=== PATIENT | female | born 1945 | race Caucasian/White ===

== ENCOUNTER 2020-01-04 23:49 | Emergency (ER) | payer MEDICARE, OTHER ==
[~2020-01-04] VITALS: Ht 165.1 cm; Wt 51.7 kg
--- NOTE | 2020-01-04 23:56 | NUR ---
PT IS A/OX4, BIB [facility] FROM [facility], C/O HEADACHE X "COUPLE OF HOURS". PER MANAGER SALT'S REPORT, PT'S BP WAS 200/100 IN THE FIELD. BP 155/82 IN TRIAGE. PT C/O HEADACHE 05/05, NON-PROVOKED, ACHING IN QUALITY, DOES NOT RADIATE, HAS "IMPROVED". PT DENIES C/P, SOB, N/V/D, DIZZINESS.
--- NOTE | 2020-01-05 00:05 | NUR ---
PEREZ KIM AT BEDSIDE FOR MSE.
[2020-01-05] MEDS ORDERED: METOCLOPRAMIDE HCL 10 MG/2 ML VIAL ONE (00:24)
[2020-01-05] MEDS ORDERED: METOCLOPRAMIDE HCL 10 MG/2 ML VIAL IM ONE (00:30)
[2020-01-05 00:42] LABS: CREATININE 0.7 mg/dL (0.6-1.3); POTASSIUM 4.2 mmol/L (3.5-5.1)
[2020-01-05 00:43] LABS: BASOPHILS % (AUTO) 0.8 % (0.0-2.0); EOSINOPHILS # (AUTO) 0.1 K/uL (0.0-0.7); HEMATOCRIT 35.2 % (31.2-41.9); HEMOGLOBIN 11.5 g/dL (10.9-14.3); LYMPHOCYTES # (AUTO) 1.7 K/uL (20.0-40.0); LYMPHOCYTES % (AUTO) 34.1 % (20.5-51.5); MEAN CORPUSCULAR HGB CONC 33 g/dL (32.3-35.6); MEAN CORPUSCULAR VOLUME 85.4 fL (75.5-95.3); MONOCYTES # (AUTO) 0.4 K/uL (2.0-10.0); MONOCYTES % (AUTO) 7.4 % (0.0-11.0); NEUTROPHILS # (AUTO) 2.7 K/uL (1.8-8.9); NEUTROPHILS % (AUTO) 55.7 % (38.5-71.5); PLATELET COUNT (AUTO) 177 K/uL (179-408); RED BLOOD CELL COUNT(AUTO) 4.13 MIL/uL (3.63-4.92); WHITE BLOOD COUNT (AUTO) 4.9 K/uL (3.8-11.8)
--- NOTE | 2020-01-05 01:10 | NUR ---
PT REFUSING HEAD CT. ER NOTIFIED. PT STATES "HEADACHE WAS BECAUSE OF THE HIGH BLOOD PRESSURE. MY BLOOD PRESSURE IS NORMAL NOW".
--- NOTE | 2020-01-05 01:20 | NUR ---
PT TAKEN TO RADIOLOGY FOR CT SCAN.
--- NOTE | 2020-01-05 01:28 | NUR ---
PT BACK IN ER FROM RADIOLOGY.
[2020-01-05] MEDS ORDERED: KETOROLAC TROMETHAMINE 15 MG INJ IM ONE (01:30)
[2020-01-05] MEDS ORDERED: KETOROLAC TROMETHAMINE 15 MG INJ ONE (01:32)
--- NOTE | 2020-01-05 02:41 | NUR ---
CALLED [facility] TO TAKE PT BACK TO [facility]. SPOKE W/ KUMAR. ETA 10-15 MIN.
--- NOTE | 2020-01-05 02:42 | NUR ---
Patient discharged to home in stable conditon. Written and verbal after care instructions given. Patient verbalizes understanding of instructions. ALL BELONGINGS W/ PT. PT SELF-AMBULATED W/O DIFICULTY. PT WILL BE DRIVEN HOME BY [facility].
[2020-01-05 02:44] VITALS: BP 126/88
== END 2020-01-05 02:52 | disposition home or self-care (01) ==
LOC: ER 23:51
DX: G43.909 Migraine, unspecified, not intractable, without status migrainosus (principal); E03.9 Hypothyroidism, unspecified; Z88.0 Allergy status to penicillin; Z79.899 Other long term (current) drug therapy
CPT/HCPCS: 36415; 70450; 80048; 85025; 85651; 85730; 96372 ×2; 99284; J1885; J2765; A4663

== ENCOUNTER 2021-01-23 18:24 | Inpatient (IN) | payer MEDICARE, OTHER ==
[~2021-01-23] VITALS: Ht 160 cm; Wt 57.6 kg
[~2021-01-23 18:24] MED LIST: GABA-532 PO; LEVO50TA PO; LEVO75TA PO
[2021-01-23] MEDS ORDERED: IV NORMAL SALINE 500 ML IV ONE (19:00)
[2021-01-23] MEDS ORDERED: ONDANSETRON 4 MG/2 ML VIAL IV ONE (19:00)
[2021-01-23] MEDS ORDERED: KETOROLAC TROMETHAMINE 15 MG INJ IVP ONE (19:00)
[2021-01-23] MEDS ORDERED: ONDANSETRON 4 MG/2 ML VIAL ONE (19:06)
[2021-01-23] MEDS ORDERED: KETOROLAC TROMETHAMINE 15 MG INJ ONE (19:06)
[2021-01-23 19:29] LABS: *BILIRUBIN,URIN NEGATIVE (NEGATIVE); *BLOOD, URINE NEGATIVE (NEGATIVE); *CLARITY,URINE CLEAR (CLEAR); *COLOR,URINE LIGHT YELLOW (YELLOW); *KETONES,URINE NEGATIVE (NEGATIVE); *UROBILINOGEN,URINE 0.2 E.U./dl (NORMAL); LEUKOCYTE ESTERASE ,URINE NEGATIVE (NEGATIVE); NITRITE, URINE NEGATIVE (NEGATIVE); PH,URINE 8.5 (5.0-8.0); UGLUCOSE NEGATIVE (NEGATIVE)
[2021-01-23 19:34] LABS: BASOPHILS % (AUTO) 0.2 % (0.0-2.0); EOSINOPHILS # (AUTO) 0.1 K/uL (0.0-0.7); EOSINOPHILS % (AUTO) 1.1 % (0.0-7.0); HEMATOCRIT 37.1 % (31.2-41.9); HEMOGLOBIN 11.8 g/dL (10.9-14.3); LYMPHOCYTES % (AUTO) 10.8 % (20.5-51.5); MEAN CORPUSCULAR HEMOGLOBIN 26.9 uug (24.7-32.8); MEAN CORPUSCULAR HGB CONC 32 g/dL (32.3-35.6); MEAN CORPUSCULAR VOLUME 84.3 fL (75.5-95.3); MONOCYTES # (AUTO) 0.4 K/uL (2.0-10.0); MONOCYTES % (AUTO) 4.9 % (0.0-11.0); NEUTROPHILS # (AUTO) 7.5 K/uL (1.8-8.9); PLATELET COUNT (AUTO) 176 K/uL (179-408)
[2021-01-23 19:36] LABS: CREATININE 0.6 mg/dL (0.6-1.3)
[2021-01-23 19:43] LABS: BILIRUBIN,TOTAL 0.8 mg/dL (0.2-1.0)
[2021-01-23 19:53] LABS: MAGNESIUM 1.9 mg/dL (1.8-2.4)
[2021-01-23 20:09] LABS: THYROID STIMULATING HORMONE 0.942 mIU/mL (0.358-3.740)
--- NOTE | 2021-01-23 20:49 | NUR ---
Paged [employer] for panel call. Pending call back from Dr. Chen
--- NOTE | 2021-01-23 20:56 | NUR ---
Pt. admitted to Telemetry, under care of Dr. Chen Diagnossi: Hyponatremia Belongs List completed Addendum: 01/23/21 at 2156 by TPADOLINA Patient admitted to Med/Surg Addendum: 01/23/21 at 2201 by TPADOLINA Patient admitted to Med/Surg for Hyponatremia. Accepting MD is Dr. Chen
[2021-01-23] MEDS ORDERED: Z GUARD REMEDY PASTE 57 GM TUBE TOP PRN (21:45)
[2021-01-23] MEDS ORDERED: MAGNESIUM HYDROXIDE 30 ML LIQUID UDC PO PRN (21:45)
[2021-01-23] MEDS ORDERED: ONDANSETRON 4 MG/2 ML VIAL IV PRN (21:45)
[2021-01-23] MEDS ORDERED: IV NS 1000 ML 1,000 ML IV PRN (21:45)
[2021-01-23] MEDS ORDERED: HYDROCODONE/APAP 5-325MG TABLET PO PRN (21:45)
[2021-01-23] MEDS ORDERED: FAMOTIDINE 20 MG TABLET PO ONE (22:30)
[2021-01-23] MEDS ORDERED: FAMOTIDINE 20 MG TABLET ONE (22:34)
[2021-01-23 23:00] VITALS: BP 138/67
--- NOTE | 2021-01-23 23:00 | NUR ---
ADMITTED THIS 75 Y.O. LADY FROM ER ACCOMPANIED BY ER NURSE VIA CRISTIANE,WITH COMPLAINTS OF HEADACHE AND BODY ACHES, SODIUM LEVEL IS 126,iIV SITE ON LEFT AC PATENT AND INTACT,ADMISSION CARE DONE, PT CONSIDERED PUI, SOME OF HER PRESENTING SYMPTOMS ARE HEADACHE,CRAMPY ABDOMINAL PAIN, BODY ACHES AND CHILLS. VITAL SINS TAKEN AND RECORDED.SHE IS ALLERGIC TO PCN. HISTORY OF OSTEOPOROSIS, HYPOTHYROIDISM.PT ALERT AND ORIENTED,ABLE TO MAKE NEEDS KNOWN, VERY NEEDY .
--- NOTE | 2021-01-24 | NUR ---
ADMIT ORDERS GIVEN BY DR.K. 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
[2021-01-24] MEDS: ACETAMINOPHEN 325 MG TABLET PO PRN ×2 (03:47→03:56)
[2021-01-24 04:00] VITALS: BP 107/63
[2021-01-24 04:24] VITALS: BP_DIAS 63
--- NOTE | 2021-01-24 06:49 | NUR ---
REFUSED LAB DRAWS AND IVF THIS AM.WANTS TO SEE MD EARLY.
--- NOTE | 2021-01-24 07:30 | NUR ---
Received patient awake in bed. Alert and oriented x 4. On room air. No signs of acute distress. Patient with left AC running NS at 75cc. Patient allowed for lab draws. Patient verbalized want to be discharged. Will continue to monitor.
[2021-01-24 07:54] LABS: BASOPHILS % (AUTO) 0.4 % (0.0-2.0); EOSINOPHILS # (AUTO) 0.1 K/uL (0.0-0.7); EOSINOPHILS % (AUTO) 1.5 % (0.0-7.0); HEMATOCRIT 36.1 % (31.2-41.9); HEMOGLOBIN 11.9 g/dL (10.9-14.3); LYMPHOCYTES # (AUTO) 0.9 K/uL (20.0-40.0); LYMPHOCYTES % (AUTO) 13.3 % (20.5-51.5); MEAN CORPUSCULAR HEMOGLOBIN 27.7 uug (24.7-32.8); MEAN CORPUSCULAR HGB CONC 33 g/dL (32.3-35.6); MONOCYTES # (AUTO) 0.4 K/uL (2.0-10.0); MONOCYTES % (AUTO) 6.5 % (0.0-11.0); NEUTROPHILS # (AUTO) 5.3 K/uL (1.8-8.9); NEUTROPHILS % (AUTO) 78.3 % (38.5-71.5); PLATELET COUNT (AUTO) 167 K/uL (179-408); RED BLOOD CELL COUNT(AUTO) 4.29 MIL/uL (3.63-4.92); WHITE BLOOD COUNT (AUTO) 6.8 K/uL (3.8-11.8)
[2021-01-24 08:03] LABS: CREATININE 0.7 mg/dL (0.6-1.3); MAGNESIUM 2.2 mg/dL (1.8-2.4); POTASSIUM 4.3 mmol/L (3.5-5.1)
[2021-01-24] MEDS ORDERED: LEVOTHYROXINE SODIUM 50 MCG TABLET PO SCH ×2 (09:19→11:30)
[2021-01-24 11:35] VITALS: BP 116/53
--- NOTE | 2021-01-24 11:50 | NUR ---
Patient refused 1130 dose of Levothyroxine. Explained to patient it is ordered by the doctor and she should take it. Patient refused and stated she will just take it at home when she discharges.
[2021-01-24] MEDS ORDERED: GABAPENTIN 100 MG CAPSULE PO SCH (13:00)
--- NOTE | 2021-01-24 13:35 | NUR ---
Discharged patient to home. Alert and oriented x 4. On room air. No signs of distress. Vital signs stable. Discharge documents explained and signed. Medication list given to patient. Patient belongings accounted for and belongings list signed. IV access removed. ID band removed. Transported patient to [facility] via wheelchair. Patient given a taxi waiver to go home. Patient rode taxi to home address.
--- NOTE | 2021-01-25 10:51 | NUR ---
Pt discharged but laboratory called to notify that pt is COVID (-)
[2021-01-27] MEDS ORDERED: LEVOTHYROXINE SODIUM 75 MCG TABLET PO SCH (07:00)
== END 2021-01-24 13:25 | disposition home or self-care (01) | DRG 641 ==
LOC: ER 18:25 → MEDSURG3 22:05
PROVIDERS: ADMIT Internal Medicine; ATTEND Internal Medicine
DX: E87.1 Hypo-osmolality and hyponatremia (principal); E03.9 Hypothyroidism, unspecified; E86.1 Hypovolemia; G62.9 Polyneuropathy, unspecified; M81.0 Age-related osteoporosis without current pathological fracture; Z88.0 Allergy status to penicillin; Z20.822 Contact with and (suspected) exposure to COVID-19; R53.1 Weakness
CPT/HCPCS: 36415; 70030-TC; 71045; 83605; 83735; 84100; 84443; 85025; 85730; 87040; 87400; 93005; A4663; G0378; J1885; J2405; J7030; J7040; U0003

== ENCOUNTER 2023-11-27 00:05 | Inpatient (IN) | payer MEDICARE, OTHER ==
[~2023-11-27] VITALS: Ht 162.6 cm; Wt 49.9 kg
[2023-11-27] MEDS ORDERED: NITROGLYCERIN OINT 1 GM PACKET TP ONE (00:38)
[2023-11-27] MEDS ORDERED: ASPIRIN 81 MG TAB.CHEW ONE (00:38)
[2023-11-27 00:42] VITALS: BP 144/70
[2023-11-27] MEDS: NITROGLYCERIN OINT 1 GM PACKET TP ONE (00:42)
[2023-11-27] MEDS: ASPIRIN 81 MG TAB.CHEW PO ONE (00:42)
[2023-11-27 00:48] LABS: BASOPHILS % (AUTO) 0.7 % (0.0-2.0); EOSINOPHILS # (AUTO) 0.1 K/uL (0.0-0.7); EOSINOPHILS % (AUTO) 1.5 % (0.0-7.0); HEMATOCRIT 34.6 % (31.2-41.9); HEMOGLOBIN 11.2 g/dL (10.9-14.3); LYMPHOCYTES # (AUTO) 1.7 K/uL (0.8-4.8); LYMPHOCYTES % (AUTO) 26.1 % (20.5-51.5); MEAN CORPUSCULAR HEMOGLOBIN 27.1 uug (24.7-32.8); MEAN CORPUSCULAR HGB CONC 32 g/dL (32.3-35.6); MEAN CORPUSCULAR VOLUME 83.8 fL (75.5-95.3); MONOCYTES # (AUTO) 0.5 K/uL (0.1-1.30); MONOCYTES % (AUTO) 7.8 % (0.0-11.0); NEUTROPHILS # (AUTO) 4.2 K/uL (1.8-8.9); NEUTROPHILS % (AUTO) 63.9 % (38.5-71.5); PLATELET COUNT (AUTO) 175 K/uL (179-408); RED BLOOD CELL COUNT(AUTO) 4.13 MIL/uL (3.63-4.92); RED CELL DISTRIBUTION WIDTH 13.6 % (12.3-17.7); WHITE BLOOD COUNT (AUTO) 6.6 K/uL (3.8-11.8)
[2023-11-27 00:57] LABS: CALCIUM 8.4 mg/dL (8.5-10.1); CARBON DIOXIDE 29 mmol/L (21-32); CHLORIDE 96 mmol/L (98-107); GLUCOSE 129 mg/dL (74-106); POTASSIUM 4.4 mmol/L (3.5-5.1); SODIUM SERUM 130 mmol/L (136-145); UREA NITROGEN, BLOOD 27 mg/dL (7-18)
[2023-11-27 01:09] LABS: ALANINE AMINOTRANSFERASE 16 U/L (14-59); ALBUMIN 3.2 g/dL (3.4-5.0); ALKALINE PHOSPHATASE 65 U/L (50-136); ASPARTATE AMINOTRANSFERASE 28 U/L (15-37); BILIRUBIN,DIRECT 0.1 mg/dL (0.0-0.2); BILIRUBIN,TOTAL 0.4 mg/dL (0.2-1.0); NT-PRO BNP 489 pg/mL (0-125); TOTAL PROTEIN, SERUM 6.2 g/dL (6.4-8.2)
[2023-11-27] MEDS ORDERED: ONDANSETRON 4 MG/2 ML VIAL IV PRN (04:15)
[2023-11-27] MEDS ORDERED: ACETAMINOPHEN 325 MG TABLET PO PRN (04:15)
[2023-11-27] MEDS ORDERED: REMEDY ESSENTIAL ZINC PASTE 113 GM TP PRN (04:15)
[2023-11-27] MEDS ORDERED: ACETAMINOPHEN ES 500 MG TABLET ONE (05:43)
[2023-11-27] MEDS: ACETAMINOPHEN ES 500 MG TABLET PO ONE (05:44)
[2023-11-27 07:25] LABS: BASOPHILS # (AUTO) 0.1 K/UL (0.0-0.2); BASOPHILS % (AUTO) 0.8 % (0.0-2.0); EOSINOPHILS # (AUTO) 0.1 K/uL (0.0-0.7); EOSINOPHILS % (AUTO) 1.6 % (0.0-7.0); HEMATOCRIT 34.6 % (31.2-41.9); HEMOGLOBIN 11.3 g/dL (10.9-14.3); LYMPHOCYTES # (AUTO) 1.7 K/uL (0.8-4.8); LYMPHOCYTES % (AUTO) 25.4 % (20.5-51.5); MEAN CORPUSCULAR HEMOGLOBIN 27.5 uug (24.7-32.8); MEAN CORPUSCULAR HGB CONC 33 g/dL (32.3-35.6); MONOCYTES # (AUTO) 0.5 K/uL (0.1-1.30); MONOCYTES % (AUTO) 7.9 % (0.0-11.0); NEUTROPHILS # (AUTO) 4.4 K/uL (1.8-8.9); NEUTROPHILS % (AUTO) 64.3 % (38.5-71.5); PLATELET COUNT (AUTO) 176 K/uL (179-408); RED BLOOD CELL COUNT(AUTO) 4.11 MIL/uL (3.63-4.92); RED CELL DISTRIBUTION WIDTH 13.5 % (12.3-17.7); WHITE BLOOD COUNT (AUTO) 6.8 K/uL (3.8-11.8)
[2023-11-27 07:31] LABS: DIFFERENTIAL COMMENT 1
[2023-11-27 08:10] LABS: CALCIUM 8.7 mg/dL (8.5-10.1); CARBON DIOXIDE 25 mmol/L (21-32); CHLORIDE 101 mmol/L (98-107); CHOLESTEROL 161 mg/dL (<200); CREATININE 0.8 mg/dL (0.6-1.3); GLUCOSE 100 mg/dL (74-106); HDL CHOLESTEROL 72 mg/dL (40-60); MAGNESIUM 2.2 mg/dL (1.8-2.4); PHOSPHOROUS 4.5 mg/dL (2.5-4.9); POTASSIUM 4.5 mmol/L (3.5-5.1); SODIUM SERUM 134 mmol/L (136-145); TRIGLYCERIDES 59 MG/DL (30-150); UREA NITROGEN, BLOOD 28 mg/dL (7-18)
[2023-11-27 10:41] LABS: THYROID STIMULATING HORMONE 2.029 mIU/mL (0.358-3.740)
[2023-11-27] MEDS ORDERED: VALS80TA31 PO (11:26)
[2023-11-27 12:45] VITALS: O2SAT 98
== END 2023-11-27 12:50 | disposition home or self-care (01) | DRG 880 ==
LOC: ER 00:10 → TRANSITION 04:00
PROVIDERS: ADMIT Internal Medicine; ATTEND Internal Medicine
DX: F41.9 Anxiety disorder, unspecified (principal); E87.1 Hypo-osmolality and hyponatremia; E03.9 Hypothyroidism, unspecified; I10 Essential (primary) hypertension; Z88.0 Allergy status to penicillin; E78.00 Pure hypercholesterolemia, unspecified; M19.90 Unspecified osteoarthritis, unspecified site; M81.0 Age-related osteoporosis without current pathological fracture; R07.89 Other chest pain
CPT/HCPCS: 36415; 71045; 83550; 83735; 84100; 84443; 84484; 85025; 93005; A4606; A9150; G0378

== ENCOUNTER 2024-02-16 09:49 | Inpatient (IN) | payer MEDICARE, OTHER ==
[~2024-02-16] VITALS: Ht 162.6 cm; Wt 51.3 kg
[~2024-02-16 09:49] MED LIST changes: +VALS80TA31 PO
[2024-02-16] MEDS ORDERED: CLOPIDOGREL 75 MG TABLET ONE (10:43)
[2024-02-16] MEDS ORDERED: NITROGLYCERIN OINT 1 GM PACKET TP ONE (10:44)
[2024-02-16] MEDS ORDERED: FINA5TAB11 PO (10:44)
[2024-02-16] MEDS ORDERED: LOSA1TAB42 PO (10:44)
[2024-02-16] MEDS ORDERED: MULT-1045 PO (10:44)
[2024-02-16] MEDS ORDERED: PANT40TA2 PO (10:44)
[2024-02-16] MEDS ORDERED: LEVO50TA8 PO (10:44)
[2024-02-16] MEDS ORDERED: MAGNESIUM SULFATE/D5W 100 ML ONE ×2 (10:44→10:52)
[2024-02-16] MEDS ORDERED: METOPROLOL TARTRATE 50 MG TABLET ONE (10:44)
[2024-02-16] MEDS ORDERED: ACET325C7 PO (10:44)
[2024-02-16] MEDS ORDERED: ONDANSETRON 4 MG/2 ML VIAL ONE (10:44)
[2024-02-16] MEDS ORDERED: PROP10TA10 PO (10:44)
[2024-02-16] MEDS ORDERED: PRAV20TA4 PO (10:44)
[2024-02-16] MEDS ORDERED: HYDROMORPHONE 1 MG/1 ML DISP.SYRIN ONE (10:45)
[2024-02-16] MEDS: CLOPIDOGREL 75 MG TABLET PO ONE (10:47)
[2024-02-16] MEDS: METOPROLOL TARTRATE 50 MG TABLET PO ONE (10:47)
[2024-02-16] MEDS: ONDANSETRON 4 MG/2 ML VIAL IV ONE (10:48)
[2024-02-16] MEDS: NITROGLYCERIN OINT 1 GM PACKET TP ONE (10:48)
[2024-02-16] MEDS: HYDROMORPHONE 1 MG/1 ML DISP.SYRIN IV ONE (10:49)
[2024-02-16] MEDS: MAGNESIUM SULFATE/D5W 100 ML IV SCH (10:49)
[2024-02-16 10:56] LABS: BASOPHILS # (AUTO) 0.1 K/UL (0.0-0.2); BASOPHILS % (AUTO) 1.3 % (0.0-2.0); EOSINOPHILS # (AUTO) 0.1 K/uL (0.0-0.7); EOSINOPHILS % (AUTO) 1.4 % (0.0-7.0); HEMATOCRIT 34.6 % (31.2-41.9); HEMOGLOBIN 11.7 g/dL (10.9-14.3); LYMPHOCYTES # (AUTO) 1.4 K/uL (0.8-4.8); LYMPHOCYTES % (AUTO) 28.9 % (20.5-51.5); MEAN CORPUSCULAR HEMOGLOBIN 27.3 uug (24.7-32.8); MEAN CORPUSCULAR HGB CONC 34 g/dL (32.3-35.6); MEAN CORPUSCULAR VOLUME 80.6 fL (75.5-95.3); MONOCYTES # (AUTO) 0.4 K/uL (0.1-1.30); MONOCYTES % (AUTO) 7.9 % (0.0-11.0); NEUTROPHILS % (AUTO) 60.5 % (38.5-71.5); PLATELET COUNT (AUTO) 185 K/uL (179-408); RED BLOOD CELL COUNT(AUTO) 4.29 MIL/uL (3.63-4.92); RED CELL DISTRIBUTION WIDTH 13.2 % (12.3-17.7); WHITE BLOOD COUNT (AUTO) 4.9 K/uL (3.8-11.8)
[2024-02-16 11:22] LABS: CARBON DIOXIDE 29 mmol/L (21-32); CHLORIDE 87 mmol/L (98-107); CREATININE 0.7 mg/dL (0.6-1.3); GLUCOSE 114 mg/dL (74-106); SODIUM SERUM 124 mmol/L (136-145); UREA NITROGEN, BLOOD 15 mg/dL (7-18)
[2024-02-16] MEDS ORDERED: METOPROLOL TARTRATE 5 MG/5 ML VIAL IVP ONE (11:27)
[2024-02-16] MEDS: METOPROLOL TARTRATE 5 MG/5 ML VIAL IVP ONE (11:27)
[2024-02-16 11:29] LABS: DIFFERENTIAL COMMENT 1
[2024-02-16] MEDS ORDERED: NITROGLYCERIN 0.4 MG/TAB BOTTLE SL PRN (14:45)
[2024-02-16] MEDS ORDERED: REMEDY ESSENTIAL ZINC PASTE 113 GM TP PRN (14:45)
[2024-02-16] MEDS ORDERED: MORPHINE SULFATE 2 MG/1 ML DISP.SYRIN IV PRN (14:45)
[2024-02-16 15:07] LABS: *SODIUM RNDM,URINE 38 mmol/L (40-220)
[2024-02-16 16:22] VITALS: BP 172/68; TEMP 98.4; O2SAT 98
[2024-02-16] MEDS: GABAPENTIN 100 MG CAPSULE PO ONE (16:40)
[2024-02-16] MEDS: ONDANSETRON 4 MG/2 ML VIAL IV PRN (16:43)
[2024-02-16] MEDS: GABAPENTIN 100 MG CAPSULE PO SCH (19:00)
[2024-02-16 19:19] VITALS: BP 166/75
[2024-02-16 20:33] VITALS: TEMP 96.9
[2024-02-16] MEDS: ENOXAPARIN SODIUM 40 MG/0.4 ML DISP.SYRIN SQ SCH (21:00)
[2024-02-16] MEDS: ATORVASTATIN 10 MG TABLET PO SCH (21:00)
[2024-02-16] MEDS: ACETAMINOPHEN 325 MG TABLET PO PRN (21:00)
[2024-02-16] MEDS: LORAZEPAM 1 MG TABLET PO PRN (21:53)
[2024-02-16] MEDS: IV NS 1000 ML 1,000 ML IV SCH (21:56)
[2024-02-17 00:06] VITALS: TEMP 97.9
[2024-02-17] MEDS: GABAPENTIN 100 MG CAPSULE PO SCH ×2 (00:15→17:33)
[2024-02-17 05:30] VITALS: TEMP 97.5
[2024-02-17] MEDS: LEVOTHYROXINE SODIUM 50 MCG TABLET PO SCH (06:25)
[2024-02-17] MEDS: PANTOPRAZOLE SODIUM 40 MG TABLET.DR PO SCH (06:25)
[2024-02-17 08:05] VITALS: BP 150/59; TEMP 97.2
[2024-02-17] MEDS: GABAPENTIN 100 MG CAPSULE PO ONE (08:58)
[2024-02-17] MEDS: FINASTERIDE 5 MG TABLET PO SCH (08:58)
[2024-02-17] MEDS ORDERED: CLOPIDOGREL 75 MG TABLET PO SCH (09:00)
[2024-02-17 12:01] VITALS: BP 126/62; TEMP 97.8; O2SAT 98
[2024-02-17 16:01] VITALS: BP 124/59; TEMP 97.3; O2SAT 96
[2024-02-17] MEDS ORDERED: OFLO5DRO3 RIGHTEYE (16:02)
[2024-02-17] MEDS ORDERED: POLY15DR31 EACHEYE (16:06)
[2024-02-17] MEDS ORDERED: LIFI1DRO3 LEFTEYE (16:06)
[2024-02-17] MEDS ORDERED: PRED5DRO24 RIGHTEYE (16:16)
[2024-02-17 16:47] LABS: BASOPHILS % (AUTO) 0.6 % (0.0-2.0); EOSINOPHILS # (AUTO) 0.1 K/uL (0.0-0.7); EOSINOPHILS % (AUTO) 1.2 % (0.0-7.0); HEMOGLOBIN 11.5 g/dL (10.9-14.3); LYMPHOCYTES # (AUTO) 1.7 K/uL (0.8-4.8); LYMPHOCYTES % (AUTO) 27.9 % (20.5-51.5); MEAN CORPUSCULAR HEMOGLOBIN 27.3 uug (24.7-32.8); MEAN CORPUSCULAR HGB CONC 34 g/dL (32.3-35.6); MEAN CORPUSCULAR VOLUME 80.6 fL (75.5-95.3); MONOCYTES # (AUTO) 0.5 K/uL (0.1-1.30); MONOCYTES % (AUTO) 8.4 % (0.0-11.0); NEUTROPHILS # (AUTO) 3.7 K/uL (1.8-8.9); NEUTROPHILS % (AUTO) 61.9 % (38.5-71.5); PLATELET COUNT (AUTO) 184 K/uL (179-408); RED BLOOD CELL COUNT(AUTO) 4.22 MIL/uL (3.63-4.92); RED CELL DISTRIBUTION WIDTH 13.3 % (12.3-17.7)
[2024-02-17 16:53] LABS: DIFFERENTIAL COMMENT 1
[2024-02-17 17:04] LABS: CALCIUM 7.4 mg/dL (8.5-10.1); MAGNESIUM 2.3 mg/dL (1.8-2.4); PHOSPHOROUS 2.6 mg/dL (2.5-4.9)
[2024-02-17 17:15] LABS: THYROID STIMULATING HORMONE 3.65 mIU/mL (0.358-3.740)
[2024-02-17] MEDS ORDERED: MAGNESIUM HYDROXIDE 30 ML LIQUID UDC PO PRN (18:45)
[2024-02-17] MEDS: POLYVINYL ALCOHOL OPHT DROPS 15 ML BOTTLE EACHEYE SCH (21:00)
[2024-02-17] MEDS: CIPROFLOXACIN 0.3% OPHT DROP 2.5 ML BOTTLE RIGHTEYE SCH (21:00)
[2024-02-17] MEDS: prednisoLONE ACET 1% OPHT DROP 5 ML BOTTLE RIGHTEYE SCH (21:00)
[2024-02-17] MEDS: MAGNESIUM HYDROXIDE 30 ML LIQUID UDC PO PRN (21:19)
[2024-02-17] MEDS: PROPRANOLOL HCL 10 MG TABLET PO SCH (21:20)
[2024-02-17 21:38] VITALS: BP 128/62; TEMP 97.3; O2SAT 97
[2024-02-18 00:20] VITALS: BP 110/58; TEMP 98; O2SAT 97
[2024-02-18 04:00] VITALS: BP 128/54; TEMP 97.4; O2SAT 96
[2024-02-18] MEDS: LEVOTHYROXINE SODIUM 50 MCG TABLET PO SCH (06:35)
[2024-02-18 08:00] VITALS: BP 142/60; TEMP 98.1; O2SAT 97
[2024-02-18 11:40] VITALS: BP 120/60; TEMP 97.7; O2SAT 96
[2024-02-18 12:01] LABS: BASOPHILS % (AUTO) 0.6 % (0.0-2.0); EOSINOPHILS # (AUTO) 0.1 K/uL (0.0-0.7); EOSINOPHILS % (AUTO) 1.8 % (0.0-7.0); HEMATOCRIT 36.6 % (31.2-41.9); HEMOGLOBIN 12.4 g/dL (10.9-14.3); LYMPHOCYTES # (AUTO) 1.4 K/uL (0.8-4.8); LYMPHOCYTES % (AUTO) 22.3 % (20.5-51.5); MEAN CORPUSCULAR HEMOGLOBIN 27.6 uug (24.7-32.8); MEAN CORPUSCULAR HGB CONC 34 g/dL (32.3-35.6); MEAN CORPUSCULAR VOLUME 81.9 fL (75.5-95.3); MONOCYTES # (AUTO) 0.5 K/uL (0.1-1.30); MONOCYTES % (AUTO) 8.7 % (0.0-11.0); NEUTROPHILS # (AUTO) 4.2 K/uL (1.8-8.9); NEUTROPHILS % (AUTO) 66.6 % (38.5-71.5); PLATELET COUNT (AUTO) 225 K/uL (179-408); RED BLOOD CELL COUNT(AUTO) 4.47 MIL/uL (3.63-4.92); RED CELL DISTRIBUTION WIDTH 13.7 % (12.3-17.7); WHITE BLOOD COUNT (AUTO) 6.2 K/uL (3.8-11.8)
[2024-02-18 12:32] LABS: CALCIUM 7.8 mg/dL (8.5-10.1); CREATININE 0.8 mg/dL (0.6-1.3); POTASSIUM 4.8 mmol/L (3.5-5.1)
[2024-02-18 12:37] LABS: ALBUMIN 3.3 g/dL (3.4-5.0); BILIRUBIN,TOTAL 0.5 mg/dL (0.2-1.0); TOTAL PROTEIN, SERUM 6.2 g/dL (6.4-8.2)
[2024-02-18 16:17] VITALS: BP 153/63; TEMP 98.3; O2SAT 98
[2024-02-18 16:42] VITALS: BP 153/63
[2024-02-18] MEDS: CLONIDINE HCL 0.1 MG TABLET PO PRN (16:42)
[2024-02-22] MEDS ORDERED: LEVOTHYROXINE SODIUM 100 MCG TABLET PO SCH (07:00)
== END 2024-02-18 18:20 | disposition home health service (06) | DRG 641 ==
LOC: ER 09:49 → TELE3 15:49
PROVIDERS: ADMIT Internal Medicine; ATTEND Nurse Practitioner Acute Care
PROC: 05HB33Z Insertion of Infusion Device into Right Basilic Vein, Percutaneous Approach (ICD-10-PCS; principal; 2024-02-17)
DX: E87.1 Hypo-osmolality and hyponatremia (principal); F03.94 Unspecified dementia, unspecified severity, with anxiety; F03.92 Unspecified dementia, unspecified severity, with psychotic disturbance; E86.1 Hypovolemia; R07.9 Chest pain, unspecified; F41.9 Anxiety disorder, unspecified; E03.9 Hypothyroidism, unspecified; E78.5 Hyperlipidemia, unspecified; F32.A Depression, unspecified; K21.9 Gastro-esophageal reflux disease without esophagitis; G62.9 Polyneuropathy, unspecified; I10 Essential (primary) hypertension; F29 Unspecified psychosis not due to a substance or known physiological condition; I25.10 Atherosclerotic heart disease of native coronary artery without angina pectoris; Z79.899 Other long term (current) drug therapy; Z88.0 Allergy status to penicillin; Z88.6 Allergy status to analgesic agent; T50.2X5A Adverse effect of carbonic-anhydrase inhibitors, benzothiadiazides and other diuretics, initial encounter; Y92.9 Unspecified place or not applicable; Z88.5 Allergy status to narcotic agent
CPT/HCPCS: 36415; 71045; 83735; 84100; 84300; 84443; 84484; 85025; 93005; A4606; A4663; G0378; J1170; J1650; J2405; J2650; J3475; J3490; J7040